=== PATIENT | male | born 2000 | race Caucasian/White ===

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

== ENCOUNTER 2021-01-01 13:13 | Emergency (ER) | payer OTHER ==
[~2021-01-01] VITALS: Ht 172.7 cm; Wt 69.4 kg
[2021-01-01] MEDS ORDERED: VENTAER INH (14:26)
[2021-01-01 14:38] VITALS: BP 135/77
== END 2021-01-01 14:39 | disposition home or self-care (01) ==
LOC: M ED 13:13
DX: Z76.0 Encounter for issue of repeat prescription (principal); J45.20 Mild intermittent asthma, uncomplicated; Z88.6 Allergy status to analgesic agent

== ENCOUNTER → 2021-04-06 | Outpatient (CLI) | payer OTHER ==
[~2021-04-06] MED LIST: VENTAER INH
== END ==
LOC: M LABSMTC 12:23
PROVIDERS: ATTEND Family Medicine
DX: Z20.822 Contact with and (suspected) exposure to COVID-19 (principal)
CPT/HCPCS: C9803; U0003

== ENCOUNTER 2021-04-13 13:12 | Emergency (ER) | payer OTHER ==
[~2021-04-13] VITALS: Ht 172.7 cm; Wt 66.2 kg
[2021-04-13 13:19] VITALS: BP 133/75
== END 2021-04-13 13:39 | disposition left against medical advice (07) ==
LOC: M ED 13:12
DX: Z53.21 Procedure and treatment not carried out due to patient leaving prior to being seen by health care provider (principal)

== ENCOUNTER 2024-02-23 01:58 | Emergency (ER) | payer OTHER, SELFPAY ==
[~2024-02-23] VITALS: Ht 172.7 cm; Wt 69.1 kg
[2024-02-23 02:28] LABS: HEMATOCRIT 47.2 % (42.0-52.0); HEMOGLOBIN 17.1 g/dl (13.5-17.5); MEAN CORPUSCULAR HEMOGLOBIN 31.8 pg (27.0-33.0); MEAN CORPUSCULAR VOLUME 87.9 fl (80.0-96.0); RED BLOOD COUNT 5.37 10^6/uL (4.30-6.10); WHITE BLOOD COUNT 9.8 10^3/uL (4.0-10.0)
[2024-02-23 02:29] LABS: BASO # 0.1 10^3/uL (0.0-0.2); BASO % 0.8 % (0.0-1.0); EOS # 0.5 10^3/uL (0.0-0.5); EOS % 5.5 % (0.0-3.0); LYMPH # 3.8 10^3/uL (1.5-5.0); LYMPH % 39.3 % (24.0-44.0); MEAN CORPUSCULAR HGB CONC 36.2 g/dl (32.0-36.5); MONO # 0.5 10^3/uL (0.0-0.8); MONO % 5.3 % (2.0-8.0); NEUTROPHILS # 4.8 10^3/uL (1.5-8.5); NEUTROPHILS % 48.9 % (36.0-66.0); PLATELET COUNT, AUTOMATED 300 10^3/uL (150-450)
[2024-02-23] MEDS: BOOSTRIX VACCINE (TETANUS/DIPHTH/ACEL. PERTUSSIS) 0.5ML SYR IM.IMMUN ONE (02:35)
[2024-02-23] MEDS: ceFAZolin SOD 1 GM in D5W MINI-BAG PLUS 50 ML IV ONE (02:35)
[2024-02-23] MEDS: MORPHINE 2 MG/ML 1ML VIAL IV PRN (02:35)
[2024-02-23 02:51] LABS: ETHYL ALCOHOL (ETHANOL) 0.259 % (0.000-0.010)
[2024-02-23 02:53] LABS: BLOOD UREA NITROGEN 14 MG/DL (9-23); CALCIUM LEVEL 8.6 MG/DL (8.5-10.1); CARBON DIOXIDE LEVEL 27 MMOL/L (20-31); CHLORIDE LEVEL 107 MMOL/L (98-107); CREATININE FOR GFR 0.95 MG/DL (0.70-1.30); GLOMERULAR FILTRATION RATE > 60.0 (>60); GLUCOSE, FASTING 103 MG/DL (60-100); POTASSIUM SERUM 3.8 MMOL/L (3.5-5.1); SODIUM LEVEL 141 MMOL/L (136-145)
[2024-02-23 04:15] LABS: AMPHETAMINES LEVEL URINE NEGATIVE (NEGATIVE); BARBITURATES URINE NEGATIVE (NEGATIVE); BENZODIAZEPINES URINE NEGATIVE (NEGATIVE); COCAINE METABOLITE URINE NEGATIVE (NEGATIVE); METHADONE URINE NEGATIVE (NEGATIVE); OPIATES URINE NEGATIVE (NEGATIVE); PHENCYCLIDINE URINE NEGATIVE (NEGATIVE)
[2024-02-23 04:18] LABS: CANNABINOIDS URINE POSITIVE (NEGATIVE)
[2024-02-23] MEDS ORDERED: ALBUTEROL SULFATE 2.5MG/0.5ML INH NEB SOLN INH ONE (07:15)
[2024-02-23 08:00] VITALS: BP 112/54; O2SAT 97
[2024-02-23] MEDS: ALBUTEROL 90 MCG/ACT 8GM HFA INHALER INH ONE (08:11)
[2024-02-23] MEDS ORDERED: LIDOCAINE 2% MDV 20ML VIAL As Ordered ONE (08:22)
[2024-02-23] MEDS ORDERED: CEPH500C PO (08:59)
[2024-02-23] MEDS: LIDOCAINE 2% MDV 20ML VIAL SC ONE (09:00)
[2024-02-23] MEDS: CEPHALEXIN 500 MG CAP PO ONE ×2 (09:09)
[2024-02-23 09:19] VITALS: TEMP 99.2
== END 2024-02-23 09:21 | disposition home or self-care (01) ==
LOC: M ED 01:58 → EDBD 01:58 → M ED 09:21
DX: S81.801A Unspecified open wound, right lower leg, initial encounter (principal); S82.91XA Unspecified fracture of right lower leg, initial encounter for closed fracture; Y92.410 Unspecified street and highway as the place of occurrence of the external cause; Y93.89 Activity, other specified; Y99.9 Unspecified external cause status; J45.909 Unspecified asthma, uncomplicated; F17.200 Nicotine dependence, unspecified, uncomplicated; Z88.6 Allergy status to analgesic agent
CPT/HCPCS: 12002; 73564; 73590; 73610; 73700; 80048; 80307; 82077; 85025; 90471; 90715; 96365; 96366; 96375; 96376; 99284; J0690

== ENCOUNTER → 2024-02-26 | Outpatient (CLI) | payer OTHER ==
[~2024-02-26] MED LIST changes: +CEPH500C PO
== END ==
LOC: M SOG 07:56
PROVIDERS: ATTEND Physician Assistant
DX: M25.571 Pain in right ankle and joints of right foot (principal)

== ENCOUNTER → 2024-03-12 | Outpatient (CLI) | payer OTHER | LOC: M SOG 08:40 | PROVIDERS: ATTEND Physician Assistant | DX: M25.571 Pain in right ankle and joints of right foot (principal) ==

== ENCOUNTER → 2024-03-26 | Outpatient (CLI) | payer OTHER | LOC: M SOG 11:28 | PROVIDERS: ATTEND Physician Assistant | DX: M25.571 Pain in right ankle and joints of right foot (principal) ==

== ENCOUNTER → 2024-04-07 | Outpatient (CLI) | payer OTHER | LOC: M SOG 07:52 | PROVIDERS: ATTEND Physician Assistant | DX: M25.571 Pain in right ankle and joints of right foot (principal) ==

== ENCOUNTER → 2024-06-25 | Outpatient (CLI) | payer OTHER | LOC: M SOG 07:52 | PROVIDERS: ATTEND Physician Assistant | DX: Z53.9 Procedure and treatment not carried out, unspecified reason (principal) ==

== ENCOUNTER → 2024-06-30 | Outpatient (CLI) | payer OTHER | LOC: M PLAIMG 10:03 | PROVIDERS: ATTEND Physician Assistant | DX: S92.141D Displaced dome fracture of right talus, subsequent encounter for fracture with routine healing (principal) ==